=== PATIENT | female | born 1965 | race Caucasian/White ===

== ENCOUNTER 2016-12-17 09:25 | Day surgery (SDC) | payer BC ==
[2016-12-17] MEDS ORDERED: Lactated Ringers 1,000 ML IV SCH (09:30)
[2016-12-17] MEDS ORDERED: Propofol 200 MG/20 ML SDV IV ONE (12:30)
[2016-12-17] MEDS ORDERED: Lidocaine 2% 100 MG/5 ML Syringe IVPUSH ONE (12:30)
[2016-12-17] MEDS ORDERED: Midazolam 1 MG/ML 2 ML SDV IV ONE (12:30)
--- NOTE | 2016-12-17 13:03 | PCM.OPNOTE ---
- General Post-Op/Procedure Note Date of Surgery/Procedure: 12/17/16 Operative Procedure(s): c scope with bx Findings: rectal polyp Pre Op Diagnosis: screening Post-Op Diagnosis: rectal polyp Anesthesia Technique: MAC Primary Surgeon: Cortez Lawrence Anesthesia Provider: Ana Ramey (re) Pathology: rectal polyp Complications: None Condition: Good Free Text/Narrative:: see dictation
[2016-12-17 14:54] VITALS: BP 112/64
--- NOTE | 2016-12-18 08:23 | OR ---
DATE OF OPERATION: 12/17/2016 SURGEON: Cortez Lawrence MD PROCEDURE PERFORMED: Colonoscopy with cold loop snare biopsy. PREOPERATIVE DIAGNOSIS: Screening colonoscopy. POSTOPERATIVE DIAGNOSIS: Rectal polyp. INDICATIONS FOR PROCEDURE: This is a 51-year-old white female, who presents for screening colonoscopy. She was offered and accepted same. DESCRIPTION OF OPERATION: After an excellent IV sedation was administered, digital rectal exam was performed. No marked abnormality was noted. The flexible colonoscope was inserted and advanced to the cecum without difficulty. The prep was excellent. The following findings were noted: Ascending colon: Unremarkable. Transverse colon: Unremarkable. Descending colon: Unremarkable. Sigmoid: Unremarkable. Rectum: At the distal rectum, a small polypoid lesion biopsied with the cold loop snare and sent for permanent. The remainder of the rectal exam was unremarkable. The colon was deflated. The scope was removed. The patient tolerated the procedure well and was taken to the recovery room in good condition. /[id number] DEBORAH/ALESHA
== END 2016-12-17 14:00 | disposition home or self-care (01) ==
LOC: FB.SDS 09:25
PROVIDERS: ATTEND Surgery
DX: Z12.11 Encounter for screening for malignant neoplasm of colon (principal); D12.8 Benign neoplasm of rectum; F41.9 Anxiety disorder, unspecified; Z79.899 Other long term (current) drug therapy; F17.210 Nicotine dependence, cigarettes, uncomplicated
CPT/HCPCS: 45385; 88305; J2250; J2704; J7120